=== PATIENT | female | born 1975 | race Hispanic/Latino ===

== ENCOUNTER 2018-03-21 16:47 | Emergency (ER) | payer OTHER ==
[2018-03-21] MEDS ORDERED: IBUPROFEN 600 MG TABLET ONE (17:20)
[2018-03-21] MEDS ORDERED: CYCLOBENZAPRINE HCL 10 MG TABLET ONE (17:21)
== END 2018-03-21 18:15 | disposition home or self-care (01) ==
LOC: EDH 16:47
DX: S13.4XXA Sprain of ligaments of cervical spine, initial encounter (principal); M62.830 Muscle spasm of back; J45.909 Unspecified asthma, uncomplicated; Z90.710 Acquired absence of both cervix and uterus; Z98.890 Other specified postprocedural states; V43.62XA Car passenger injured in collision with other type car in traffic accident, initial encounter; Y93.89 Activity, other specified; Y92.410 Unspecified street and highway as the place of occurrence of the external cause; Y99.8 Other external cause status
CPT/HCPCS: 72040; 72072